=== PATIENT | male | born 1950 | race Caucasian/White ===

== ENCOUNTER 2020-04-29 08:40 | Day surgery (SDC) | payer MEDICARE ==
[~2020-04-29 08:40] MED LIST: Bupivacaine 0.5% 30 ML SDV ONE; Lidocaine 0.5% 50 ML SDV ONE; Midazolam 1 MG/ML 2 ML SDV ONE; Propofol 200 MG/20 ML SDV ONE; fentaNYL 100 MCG/2 ML SDV ONE
[2020-04-29] MEDS ORDERED: Nozin Nasal Sanitizer NASBOTH ONE (09:15)
[2020-04-29] MEDS ORDERED: Lactated Ringers 1,000 ML IV SCH (10:00)
[2020-04-29] MEDS ORDERED: ceFAZolin 1 GM in Premix Bag 1 BAG IV ONE (10:30)
[2020-04-29 13:11] VITALS: BP 131/80
[2020-04-29 13:42] VITALS: PULSE 60
--- NOTE | 2020-05-12 10:07 | OR ---
DATE OF PROCEDURE: 04/29/2020 SURGEON: Maxx Scott MD PREOPERATIVE DIAGNOSIS: Stenosing tenosynovitis, 3rd finger, left hand. POSTOPERATIVE DIAGNOSIS: Stenosing tenosynovitis, 3rd finger, left hand. Two small synovial cysts of the tendon sheath. PROCEDURE: Release of A1 felipe 3rd finger and excision of synovial cyst. ANESTHESIA: Local with sedation. INDICATIONS: Abdiel is a 69-year-old gentleman with a history of progressive pain in the left 3rd finger with locking in flexion. This happens multiple times throughout the day. He particularly notices it in the morning when he wakes up and takes him quite some time to work the finger into extension. He now presents for release of the A1 felipe. Risks, benefits, and potential complications were discussed. DESCRIPTION OF PROCEDURE: After adequate anesthesia was obtained with the local infiltration, the hand was prepped and draped in a sterile fashion. A transverse incision was made in the palmar crease overlying the flexor tendon. Dissection carried down through the subcutaneous tissues and care taken to avoid neurovascular structures. Flexor tendon was identified and a small teodoro was made in the A1 felipe with a 15 blade, which was then extended using tenotomy scissors proximally and distally. Once this was completed, a synovial cyst on the tendon sheath of the flexor was identified and this was excised. Finger was taken through range of motion. No other abnormalities of the tendons were noted and release of the felipe was confirmed proximally and distally by direct visualization and palpation. It was then irrigated and skin was closed with 3-0 nylon in interrupted mattress fashion. Sterile dressing was then applied. The patient tolerated the procedure well with no complications. He was taken from the operating room in stable condition. Maxx Scott MD /[id number]
== END 2020-04-29 13:45 | disposition home or self-care (01) ==
LOC: JP.SDS 08:40
PROVIDERS: ATTEND Specialist
DX: M65.332 Trigger finger, left middle finger (principal); M65.842 Other synovitis and tenosynovitis, left hand; M71.342 Other bursal cyst, left hand; J44.9 Chronic obstructive pulmonary disease, unspecified; F41.9 Anxiety disorder, unspecified; F32.9 Major depressive disorder, single episode, unspecified; E66.9 Obesity, unspecified; I11.0 Hypertensive heart disease with heart failure; I50.9 Heart failure, unspecified; G47.33 Obstructive sleep apnea (adult) (pediatric); Z88.5 Allergy status to narcotic agent; Z88.7 Allergy status to serum and vaccine; Z87.891 Personal history of nicotine dependence; Z79.899 Other long term (current) drug therapy; Z79.82 Long term (current) use of aspirin; Z68.32 Body mass index [BMI] 32.0-32.9, adult
CPT/HCPCS: 26055; A9270; J0690; J2001; J2250; J2704; J3010; J3490; J7120

== ENCOUNTER 2020-05-08 08:11 | Emergency (ER) | payer MEDICARE ==
[2020-05-08 08:22] VITALS: BP 139/86; PULSE 56
--- NOTE | 2020-05-08 08:37 | EDM.PDOC ---
ED HPI GENERAL MEDICAL PROBLEM - General Chief Complaint: Upper Extremity Injury/Pain Stated Complaint: POST SURGERY ISSUES Time Seen by Provider: 05/08/20 08:20 Source of Information: Reports: Patient History Limitations: Reports: No Limitations - History of Present Illness INITIAL COMMENTS - FREE TEXT/NARRATIVE: 69-year-old male worried about postoperative complications from trigger finger release surgery that he had just over 1 week ago. His middle and index finger are numb and stiff. He is worried about gangrene and losing his fingers. No fevers or chills, no redness, some home health nurse redressed his bandages and made no comment that things look bad. Onset: Other (Numbness since his surgery) Duration: Day(s): (8 to 9 days) Location: Reports: Upper Extremity, Left Associated Symptoms: Reports: No Other Symptoms - Related Data Allergies Allergy/AdvReac Type Severity Reaction Status Date / Time Influenza Virus Vaccines Allergy Difficulty Verified 05/08/20 08:19 Breathing meloxicam [From Mobic] Allergy Rash Verified 05/08/20 08:19 codeine AdvReac nausea/vomi Verified 05/08/20 08:19 ting hydrocodone AdvReac Nausea and Verified 05/08/20 08:19 Vomiting Home Meds: Home Meds Formoterol/Mometasone [Dulera 100 MCG/5 MCG] 2 puff INH BID 08/28/15 [History] Tiotropium [Spiriva HandiHaler] 1 cap INH DAILY 08/28/15 [History] Lisinopril 5 mg PO DAILY 12/24/15 [History] Metoprolol Tartrate [Lopressor] 50 mg PO DAILY 12/24/15 [History] Albuterol Sulfate [Proair Hfa] 1 - 2 puff INH Q4H PRN 03/08/16 [History] Aspirin 81 mg PO DAILY 03/08/16 [History] Furosemide [Lasix] 40 mg PO DAILY 05/27/16 [History] Acetaminophen [Tylenol] 650 mg PO Q4H PRN 03/19/20 [History] Alclometasone Dipropionate 1 applic TOP BID 03/19/20 [History] Folic Acid 1 mg PO DAILY 03/19/20 [History] Latanoprost/Pf [Latanoprost 0.005% Eye Drop] 1 drop EYEBOTH BEDTIME 03/19/20 [History] Pravastatin Sodium [Pravastatin (Pravachol)] 40 mg PO DAILY 03/19/20 [History] Past Medical History HEENT History: Reports: Allergic Rhinitis, Impaired Vision, Sinusitis Cardiovascular History: Reports: Heart Failure, Hypertension Other Cardiovascular History: ascending aorta enlargement Respiratory History: Reports: COPD, Sleep Apnea Gastrointestinal History: Reports: Colon Polyp Genitourinary History: Reports: Prostate Disorder Musculoskeletal History: Reports: Back Pain, Chronic, Osteoarthritis, Other (See Below) Other Musculoskeletal History: L middle trigger finger Neurological History: Reports: Migraines, Seizure Psychiatric History: Reports: Anxiety, Depression Endocrine/Metabolic History: Reports: Obesity/BMI 30+ Dermatologic History: Reports: Eczema - Infectious Disease History Infectious Disease History: Reports: Chicken Pox, Measles, Mumps, Pertussis (Whooping Cough) - Past Surgical History HEENT Surgical History: Reports: None Cardiovascular Surgical History: Reports: None Respiratory Surgical History: Reports: None GI Surgical History: Reports: Colonoscopy, Hernia Repair/Other Male Surgical History: Reports: None Neurological Surgical History: Reports: None Musculoskeletal Surgical History: Reports: Arthroscopic Knee, Knee Replacement Other Musculoskeletal Surgeries/Procedures:: left knee replacement in Jul 2019 Social & Family History - Family History Family Medical History: Noncontributory - Tobacco Use Smoking Status *Q: Never Smoker - Caffeine Use Caffeine Use: Reports: Coffee - Recreational Drug Use Recreational Drug Use: No - Living Situation & Occupation Living situation: Reports: Single Occupation: Retired Review of Systems - Review of Systems Review Of Systems: See Below Constitutional: Denies: Fever Respiratory: Denies: Shortness of Breath Cardiovascular: Denies: Chest Pain Neurological: Reports: Paresthesia (Numbness in the index and middle fingers on the left hand) ED EXAM, GENERAL - Physical Exam Exam: See Below Exam Limited By: No Limitations General Appearance: Alert, No Apparent Distress Respiratory/Chest: No Respiratory Distress Extremities: Other (Exam is otherwise limited to the left hand. He has a loose dressing around the palm of the hand with a bandage over the incision. All of his fingers are normal color, he has good capillary refill in all his fingers.) Course - Vital Signs Last Recorded V/S: Last Vital Signs Temp 97.8 F 05/08/20 08:22 Pulse 56 L 05/08/20 08:22 Resp 20 05/08/20 08:22 BP 139/86 05/08/20 08:22 Pulse Ox 97 05/08/20 08:22 - Re-Assessments/Exams Free Text/Narrative Re-Assessment/Exam: 05/08/20 08:35 Reassured the patient that gangrene is a lack of circulation, and his is normal. The numbness and stiffness are not unusual after his surgery and should improve over time, he has a recheck with Dr. Scott next week and should keep that appointment. Departure - Departure Time of Disposition: 08:48 Disposition: Home, Self-Care 01 Clinical Impression: Paresthesia of finger - Discharge Information Instructions: Paresthesia Referrals: PCP,None [Primary Care Provider] - Forms: ED Department Discharge Care Plan Goals: Continue your postoperative care as directed by Dr. Scott, and keep your recheck appointment next week as scheduled. Sepsis Event Note (ED) - Evaluation Sepsis Screening Result: No Definite Risk - Focused Exam Vital Signs: Vital Signs Temp Pulse Resp BP Pulse Ox 05/08/20 08:22 97.8 F 56 L 20 139/86 97
== END 2020-05-08 08:48 | disposition home or self-care (01) ==
LOC: JP.ED 08:11
DX: R20.2 Paresthesia of skin (principal); I11.0 Hypertensive heart disease with heart failure; I50.9 Heart failure, unspecified; J44.9 Chronic obstructive pulmonary disease, unspecified; E66.9 Obesity, unspecified; Z68.31 Body mass index [BMI] 31.0-31.9, adult; Z88.7 Allergy status to serum and vaccine; Z88.5 Allergy status to narcotic agent; Z88.8 Allergy status to other drugs, medicaments and biological substances; Z79.82 Long term (current) use of aspirin; Z79.899 Other long term (current) drug therapy
CPT/HCPCS: 99282; 99283

== ENCOUNTER 2020-12-21 05:49 | Day surgery (SDC) | payer MEDICARE ==
[2020-12-21] MEDS ORDERED: Lactated Ringers 1,000 ML IV SCH (06:30)
[2020-12-21] MEDS ORDERED: Nozin Nasal Sanitizer NASBOTH ONE (06:30)
[2020-12-21] MEDS ORDERED: ceFAZolin 1 GM in Premix Bag 1 BAG IV ONE (07:30)
[2020-12-21] MEDS ORDERED: Midazolam 1 MG/ML 2 ML SDV ONE (07:32)
[2020-12-21] MEDS ORDERED: fentaNYL 100 MCG/2 ML SDV ONE (07:32)
[2020-12-21] MEDS ORDERED: Propofol 200 MG/20 ML SDV ONE (07:32)
[2020-12-21] MEDS ORDERED: Lidocaine 0.5% 50 ML SDV ONE (07:35)
[2020-12-21] MEDS: Bupivacaine 0.5% 30 ML SDV ONE ×2 (08:07→08:28)
[2020-12-21 09:32] VITALS: BP 123/74
[2020-12-21] MEDS ORDERED: Acetaminophen/oxyCODONE 325-5 MG Tab PO ONE (09:36)
[2020-12-21 09:44] VITALS: PULSE 71
--- NOTE | 2020-12-30 16:22 | OR ---
DATE OF PROCEDURE: 12/21/2020 SURGEON: Maxx Scott MD PREOPERATIVE DIAGNOSIS: Carpal tunnel syndrome, left wrist, possible digital nerve injury. POSTOPERATIVE DIAGNOSIS: Carpal tunnel syndrome, left wrist. Intact digital nerve. PROCEDURE: Left carpal tunnel release and exploration of digital nerve to digits 2 and 3. FAMILY SERVICE CASEWORKER: FAUSTO Foley. ANESTHESIA: General. INDICATIONS: Abdiel is a 70-year-old gentleman who has persistent numbness in the 2nd and 3rd fingers of his left hand. He previously had a trigger finger release and subsequent to that developed increasing numbness. This is felt to be secondary to carpal tunnel syndrome. However, there is a chance of injury to the digital nerve from the trigger finger release including possible neuroma in situ. He now presents for release of the carpal tunnel having failed conservative treatment. Also, planned exploration of the digital nerve with neurolysis as needed. Risks, benefits, potential complications of the procedure were discussed. DESCRIPTION OF PROCEDURE: After adequate anesthesia was obtained, patient was placed supine with the left hand prepped and draped. A longitudinal incision was made in the palm distal to the wrist crease in line between the 3rd and 4th fingers. This was carried down through the subcutaneous tissues. The palmar fascia was divided and a retractor was placed. Transverse carpal ligament was then divided under direct visualization. Mild compression of the median nerve was noted. No abnormalities were noted within the tunnel. Release was completed proximally and distally under direct visualization and confirmed by palpation. The incision was carried slightly distally up into the branching of the median nerve into the digital nerves and no abnormalities are identified. The previous incision over the trigger release was utilized and extended in a zigzag configuration. Dissection carried down through the subcutaneous tissues. The flexor tendons were identified and the neurovascular structures were then identified leading into the ulnar aspect of the index finger and the radial aspect of the long finger, which were the areas of most intense paresthesias. No abnormalities were identified along the individual digital nerves at this region distal to the branching. Dissection was then carried more proximally to the portion where the nerve branched. This was well proximal to the A1 felipe and trigger release. No lesion was noted of the digital nerve at this location. There was some mild scarring present slightly more distal along the area of previous dissection. Wounds were irrigated. The skin was closed with 3-0 nylon in interrupted mattress fashion. Wounds were infiltrated with Marcaine 0.5% and sterile dressing was applied. The patient tolerated procedure well. There were no complications. Taken from the operating room in stable condition. Maxx Scott MD /[id number]
== END 2020-12-21 10:10 | disposition home or self-care (01) ==
LOC: JP.SDS 05:49
PROVIDERS: ATTEND Specialist
DX: G56.02 Carpal tunnel syndrome, left upper limb (principal); I11.0 Hypertensive heart disease with heart failure; I50.9 Heart failure, unspecified; J44.9 Chronic obstructive pulmonary disease, unspecified; G47.33 Obstructive sleep apnea (adult) (pediatric); E66.9 Obesity, unspecified; Z68.33 Body mass index [BMI] 33.0-33.9, adult; Z88.7 Allergy status to serum and vaccine; Z88.6 Allergy status to analgesic agent; Z88.8 Allergy status to other drugs, medicaments and biological substances; Z98.890 Other specified postprocedural states
CPT/HCPCS: 36415; 64721; 80053; 85027; A9270; J0690; J2250; J2704; J3010; J3490; J7120

== ENCOUNTER 2021-02-22 12:09 | Emergency (ER) | payer MEDICARE ==
[2021-02-22 12:37] VITALS: BP 136/86; PULSE 65
--- NOTE | 2021-02-22 12:53 | EDM.PDOC ---
ED HPI GENERAL MEDICAL PROBLEM - General Chief Complaint: Chest Pain Stated Complaint: HAD SHARP PAINS IN HEART AREA Time Seen by Provider: 02/22/21 12:50 Source of Information: Reports: Patient, Old Records, RN History Limitations: Reports: No Limitations - History of Present Illness INITIAL COMMENTS - FREE TEXT/NARRATIVE: 70 yo male presents after 2 spells of fairly brief, sharp substernal chest pain once yesterday and once today. There were no associated sx's. He denies any recent calf pain or LE edema and no orthopnea. He is not a smoker. No fever or cough. Sx's at rest. He walked 4 blocks to get here and had no recurrence of this pain. Onset: Sudden Onset Date: 02/21/21 Duration: Minutes:, Intermittent Location: Reports: Chest Quality: Reports: Sharp Severity: Moderate Improves with: Reports: Other (? time) Worsens with: Reports: Other (unknown) Context: Reports: Other (See HPI) Associated Symptoms: Reports: Chest Pain. Denies: Cough, Diaphoresis, Fever/Chills, Shortness of Breath Treatments TIRE MAINTENANCE TECHNICIAN: Reports: Other (see below) (none) - Related Data Allergies Allergy/AdvReac Type Severity Reaction Status Date / Time Influenza Virus Vaccines Allergy Difficulty Verified 02/22/21 12:45 Breathing meloxicam [From Mobic] Allergy Rash Verified 02/22/21 12:45 codeine AdvReac nausea/vomi Verified 02/22/21 12:45 ting hydrocodone AdvReac Nausea and Verified 02/22/21 12:45 Vomiting Home Meds: Home Meds Formoterol/Mometasone [Dulera 100 MCG/5 MCG] 2 puff INH BID 08/28/15 [History] Lisinopril 5 mg PO DAILY 12/24/15 [History] Metoprolol Tartrate [Lopressor] 50 mg PO DAILY 12/24/15 [History] Albuterol Sulfate [Proair Hfa] 1 - 2 puff INH Q4H PRN 03/08/16 [History] Aspirin 81 mg PO DAILY 03/08/16 [History] Furosemide [Lasix] 40 mg PO DAILY 05/27/16 [History] Acetaminophen [Tylenol] 650 mg PO Q4H PRN 03/19/20 [History] Alclometasone Dipropionate 1 applic TOP BID 03/19/20 [History] Folic Acid 1 mg PO DAILY 03/19/20 [History] Latanoprost/Pf [Latanoprost 0.005% Eye Drop] 1 drop EYEBOTH BEDTIME 03/19/20 [History] Pravastatin Sodium [Pravastatin (Pravachol)] 40 mg PO DAILY 03/19/20 [History] Ibuprofen [Motrin] 600 mg PO Q8H PRN #90 tab 06/11/20 [Rx] Cholecalciferol (Vitamin D3) [Vitamin D] 2,000 unit PO DAILY 11/16/20 [History] Past Medical History HEENT History: Reports: Allergic Rhinitis, Impaired Vision, Sinusitis Cardiovascular History: Reports: Heart Failure, Hypertension Other Cardiovascular History: ascending aorta enlargement Respiratory History: Reports: COPD, Sleep Apnea Gastrointestinal History: Reports: Colon Polyp Genitourinary History: Reports: Prostate Disorder Musculoskeletal History: Reports: Back Pain, Chronic, Osteoarthritis, Other (See Below) Other Musculoskeletal History: right hip pain Neurological History: Reports: Migraines, Seizure Psychiatric History: Reports: Anxiety, Depression Endocrine/Metabolic History: Reports: Obesity/BMI 30+ Dermatologic History: Reports: Eczema - Infectious Disease History Infectious Disease History: Reports: Chicken Pox, Measles, Mumps, Novel Coronavirus, Pertussis (Whooping Cough) - Past Surgical History Head Surgeries/Procedures: Reports: None HEENT Surgical History: Reports: None Cardiovascular Surgical History: Reports: None Respiratory Surgical History: Reports: None GI Surgical History: Reports: Colonoscopy, Hernia Repair/Other Male Surgical History: Reports: None Neurological Surgical History: Reports: None Musculoskeletal Surgical History: Reports: Arthroscopic Knee, Carpal Tunnel, Knee Replacement Other Musculoskeletal Surgeries/Procedures:: left knee replacement in Jul 2019. s/p L middle trigger finger 04/29/20. s/p L carpal tunnel release 12/21/20 Social & Family History - Family History Family Medical History: No Pertinent Family History - Caffeine Use Caffeine Use: Reports: Coffee - Living Situation & Occupation Living situation: Reports: Single Occupation: Retired ED ROS GENERAL - Review of Systems Review Of Systems: See Below Constitutional: Reports: No Symptoms HEENT: Reports: No Symptoms Respiratory: Denies: Shortness of Breath, Wheezing, Pleuritic Chest Pain, Cough, Sputum, Hemoptysis Cardiovascular: Reports: Chest Pain. Denies: Dyspnea on Exertion (not worse than usual), Edema, Lightheadedness, Orthopnea, Palpitations GI/Abdominal: Reports: No Symptoms : Reports: No Symptoms Musculoskeletal: Reports: No Symptoms Skin: Reports: No Symptoms Neurological: Reports: No Symptoms ED EXAM, GENERAL - Physical Exam Exam: See Below Exam Limited By: No Limitations General Appearance: Alert, WD/WN, No Apparent Distress Eye Exam: Bilateral Eye: Normal Inspection Ears: Normal External Exam, Normal Canal, Hearing Grossly Normal, Normal TMs Ear Exam: Bilateral Ear: Auricle Normal, Canal Normal, TM normal Nose: Normal Inspection, No Blood Throat/Mouth: Normal Inspection, Normal Lips, Normal Oropharynx, Normal Voice, No Airway Compromise Head: Atraumatic, Normocephalic Neck: Normal Inspection Respiratory/Chest: No Respiratory Distress, Lungs Clear, Normal Breath Sounds, No Accessory Muscle Use Cardiovascular: Regular Rate, Rhythm, No Edema GI/Abdominal: Normal Bowel Sounds, Soft, Non-Tender, No Distention Back Exam: Normal Inspection. No: CVA Tenderness (R), CVA Tenderness (L) Extremities: Normal Inspection, Normal Range of Motion, Non-Tender, No Pedal Edema Neurological: Alert, Oriented, CN II-XII Intact, Normal Cognition, No Motor/Sensory Deficits Psychiatric: Normal Affect, Normal Mood Skin Exam: Warm, Dry, Intact, Normal Color, No Rash #1 Interpretation EKG Date: 02/22/21 Time: 12:25 Rhythm: NSR Rate (Beats/Min): 57 [place]: Normal P-Wave: Present QRS: Normal ST-T: Normal QT: Normal Comparison: NA - No Prior EKG Course - Vital Signs Last Recorded V/S: Last Vital Signs Temp 36.6 C 02/22/21 12:56 Pulse 65 02/22/21 12:56 Resp 14 02/22/21 12:56 BP 136/86 02/22/21 12:56 Pulse Ox 94 L 02/22/21 12:56 - Orders/Labs/Meds Orders: Active Orders 24 hr Category Date Time Status Cardiac Monitoring [RC] .As Directed Care 02/22/21 12:10 Active EKG Documentation Completion [RC] ASDIRECTED Care 02/22/21 12:10 Active Acetaminophen [Tylenol Extra Strength] Med 02/22/21 14:00 Once 1,000 mg PO ONETIME ONE EKG 12 Lead [EK] Routine Ther 02/22/21 12:10 Ordered Medication Orders Acetaminophen (Acetaminophen 500 Mg Tab) 1,000 mg PO ONETIME ONE Stop: 02/22/21 14:01 Labs: Laboratory Tests 02/22/21 02/22/21 Range/Units 13:10 13:10 WBC 5.1 (4.5-11.0) K/uL RBC 5.30 (4.30-5.90) M/uL Hgb 16.0 H (12.0-15.0) g/dL Hct 47.6 (40.0-54.0) % MCV 90 (80-98) fL MCH 30 (27-31) pg MCHC 34 (32-36) % Plt Count 167 (150-400) K/uL Sodium 143 (140-148) mmol/L Potassium 4.2 (3.6-5.2) mmol/L Chloride 105 (100-108) mmol/L Carbon Dioxide 27 (21-32) mmol/L Anion Gap 11.4 (5.0-14.0) mmol/L BUN 18 (7-18) mg/dL Creatinine 1.2 (0.8-1.3) mg/dL Est Cr Clr Drug Dosing 59.99 mL/min Estimated GFR (MDRD) > 60 (>60) Glucose 93 (74-106) mg/dL Calcium 9.5 (8.5-10.1) mg/dL Troponin I < 0.017 (0.000-0.056) ng/mL Meds: Medications Generic Name Dose Route Start Last Admin Trade Name Freq PRN Reason Stop Dose Admin Acetaminophen 1,000 mg 02/22/21 14:00 Acetaminophen 500 Mg Tab PO 02/22/21 14:01 ONETIME ONE Departure - Departure Time of Disposition: 14:10 Disposition: Home, Self-Care 01 Condition: Good Clinical Impression: Nonspecific chest pain Instructions: Nonspecific Chest Pain, Adult, [id number] Referrals: Dorota Pacheco PA-C [Primary Care Provider] - Forms: ED Department Discharge Additional Instructions: Take acetaminophen up to 1000 mg every 6 hrs as needed for pain relief. F/U with your provider later this week. Sepsis Event Note (ED) - Focused Exam Vital Signs: Vital Signs Temp Pulse Resp BP Pulse Ox 02/22/21 12:56 36.6 C 65 14 136/86 94 L 02/22/21 12:20 36.6 C 65 14 136/86 94 L - My Orders Last 24 Hours: My Active Orders 02/22/21 12:10 Cardiac Monitoring [RC] .As Directed EKG Documentation Completion [RC] ASDIRECTED EKG 12 Lead [EK] Routine 02/22/21 14:00 Acetaminophen [Tylenol Extra Strength] 1,000 mg PO ONETIME ONE - Assessment/Plan Last 24 Hours: My Active Orders 02/22/21 12:10 Cardiac Monitoring [RC] .As Directed EKG Documentation Completion [RC] ASDIRECTED EKG 12 Lead [EK] Routine 02/22/21 14:00 Acetaminophen [Tylenol Extra Strength] 1,000 mg PO ONETIME ONE
[2021-02-22] MEDS: Acetaminophen 500 MG Tab PO ONE (14:18)
== END 2021-02-22 14:45 | disposition home or self-care (01) ==
LOC: JP.ED 12:09
DX: R07.2 Precordial pain (principal); I11.0 Hypertensive heart disease with heart failure; I50.9 Heart failure, unspecified; J44.9 Chronic obstructive pulmonary disease, unspecified; E66.9 Obesity, unspecified; Z88.7 Allergy status to serum and vaccine; Z88.5 Allergy status to narcotic agent; Z88.8 Allergy status to other drugs, medicaments and biological substances; Z79.82 Long term (current) use of aspirin; Z79.899 Other long term (current) drug therapy; Z68.32 Body mass index [BMI] 32.0-32.9, adult
CPT/HCPCS: 36415; 80048; 84484; 85027; 93005; 99285; A9270; 99284

== ENCOUNTER → 2021-05-20 | Day surgery (SDC) | payer MEDICARE ==
[~2021-05-20] MED LIST changes: -Bupivacaine 0.5% 30 ML SDV ONE; +Bupivacaine 0.5% 50 ML MDV ONE; -Lidocaine 0.5% 50 ML SDV ONE; +Lidocaine 1% with EPINEPHrine 1:100,000 50 ML MDV ONE; +ceFAZolin 2 GM in Sodium Chloride 0.9% 100 ML IV ONE
[2021-05-20] MEDS: Sodium Chloride 0.9% 1,000 ML IV SCH (10:35)
[2021-05-20 10:42] LABS: CORONAVIRUS COVID-19 NAA NEGATIVE (NEGATIVE)
[2021-05-20] MEDS: ceFAZolin 2 GM in Premix Bag 1 BAG IV ONE (11:10)
[2021-05-20] MEDS: Lidocaine 1% with EPINEPHrine 1:100,000 50 ML MDV INJECT ONE (11:32)
[2021-05-20] MEDS: Bupivacaine 0.5% 50 ML MDV INJECT ONE (11:32)
--- NOTE | 2021-05-20 13:18 | CRLCR ---
For Patients: As a result of the Cures Act, medical imaging exams and procedure reports are released immediately into your electronic medical record. You may view this report before your referring provider. If you have questions, please contact your health care provider. Indication: Post code blue Comparison: None available. Technique: PA and Lateral views chest Findings: There are overall increased interstitial markings seen throughout the bilateral hemithoraces likely representing pulmonary edema with minimal basilar airspace opacities which may represent atelectasis versus infiltrates. The cardiac silhouette is moderately enlarged with a tortuous thoracic aorta. The bony thorax is grossly intact. Impression: Overall increased interstitial markings seen throughout the bilateral hemithoraces likely representing pulmonary edema with basilar atelectasis versus infiltrates. Dictated by Davy Novak MD @ 05/20/2021 1:17:[address] Davy Novak @ May 20 2021 1:17PM
[2021-05-20 13:36] VITALS: BP 156/91; PULSE 66
--- NOTE | 2021-05-21 16:44 | PCM.EKG ---
#1 Interpretation EKG Date: 05/20/21 Time: 11:48 Rhythm: NSR Rate (Beats/Min): 65 [place]: Normal P-Wave: Present QRS: Normal ST-T: Other (Inverted T waves in leads V2 through V6) QT: Normal GA/PQ Interval: Normal Comparison: NA - No Prior EKG
--- NOTE | 2021-06-17 14:05 | OR ---
DATE OF PROCEDURE: 06/17/2021 SURGEON: Scott Gr MD PROCEDURE: Excision of cyst, back. RISKS: Risks, benefits, alternatives, and limitations including, but not limited to infection, bleeding, cardiovascular issues, wound problems, chronic wounds, chronic pain were all explained to the patient and he wished to proceed. PROCEDURE IN DETAIL: The patient was placed in prone position. A transverse incision was made. This was made approximately 3.5 cm in size. This was carried down to the level and the area of concern. Using electrocautery, the lipoma was identified and subsequently excised without difficulty. The wound was closed with 3-0 Vicryl and 4-0 Prolene in interrupted running fashion. During the aspect of this procedure, the patient developed ventricular tachycardia, which required a code to be called. The patient was subsequently intubated and then subsequently extubated. He was transferred for observation purposes to [facility]. Scott Gr MD /[id number]
--- NOTE | 2021-06-17 14:11 | DISCH ---
DISCHARGE DIAGNOSIS: Status post excision of lipoma. SUMMARY OF HOSPITAL COURSE: Pleasant gentleman, underwent a lipoma excision, and developed a ventricular tachycardia. The patient had been cleared by Cardiology preoperatively, but nonetheless developed this symptom. He underwent a code and subsequently recovered. He was then transferred to [facility] for further evaluation and management. Prior to discharge, he was extubated, breathing, had normal vital signs and had no difficulty breathing. /[id number]
== END ==
LOC: JP.SDS 09:40
PROVIDERS: ATTEND Surgery
DX: D17.1 Benign lipomatous neoplasm of skin and subcutaneous tissue of trunk (principal); I47.2 Ventricular tachycardia; I11.0 Hypertensive heart disease with heart failure; I50.9 Heart failure, unspecified; J44.9 Chronic obstructive pulmonary disease, unspecified; G47.33 Obstructive sleep apnea (adult) (pediatric); Z88.6 Allergy status to analgesic agent; Z88.8 Allergy status to other drugs, medicaments and biological substances; Z88.7 Allergy status to serum and vaccine; Z01.812 Encounter for preprocedural laboratory examination; Z20.822 Contact with and (suspected) exposure to COVID-19
CPT/HCPCS: 0241U; 11404; 36415; 36600; 71046; 80053; 82803; 83735; 84484; 85025; 88304; 93005; J0690; J2250; J2704; J3010; J3490; J7030

== ENCOUNTER 2022-01-21 14:49 | Emergency (ER) | payer MEDICARE ==
[2022-01-21] MEDS ORDERED: Sodium Chloride 0.9% 1,000 ML IV SCH (15:15)
[2022-01-21 16:22] VITALS: BP 150/85; PULSE 95
== END 2022-01-21 16:28 | disposition home or self-care (01) ==
LOC: JP.ED 14:49
DX: K52.9 Noninfective gastroenteritis and colitis, unspecified (principal); I11.0 Hypertensive heart disease with heart failure; I50.9 Heart failure, unspecified; F41.9 Anxiety disorder, unspecified; F32.A Depression, unspecified; J44.9 Chronic obstructive pulmonary disease, unspecified; M19.90 Unspecified osteoarthritis, unspecified site; E66.9 Obesity, unspecified; Z68.32 Body mass index [BMI] 32.0-32.9, adult; Z79.899 Other long term (current) drug therapy; Z79.82 Long term (current) use of aspirin; Z88.5 Allergy status to narcotic agent; Z88.7 Allergy status to serum and vaccine; Z88.8 Allergy status to other drugs, medicaments and biological substances
CPT/HCPCS: 36415; 80048; 83690; 85025; 99282; 99284; J7030

== ENCOUNTER 2023-06-05 18:15 | Emergency (ER) | payer MEDICARE ==
[2023-06-05 19:03] VITALS: BP 120/65; PULSE 95
[2023-06-05] MEDS ORDERED: Ketorolac 30 MG/ML SDV IM ONE (19:29)
== END 2023-06-05 19:51 | disposition home or self-care (01) ==
LOC: JP.ED 18:15
DX: K08.89 Other specified disorders of teeth and supporting structures (principal); J44.9 Chronic obstructive pulmonary disease, unspecified; I25.10 Atherosclerotic heart disease of native coronary artery without angina pectoris; I11.0 Hypertensive heart disease with heart failure; I50.9 Heart failure, unspecified; I25.2 Old myocardial infarction; E78.00 Pure hypercholesterolemia, unspecified; E66.9 Obesity, unspecified; M19.90 Unspecified osteoarthritis, unspecified site; Z79.82 Long term (current) use of aspirin; Z79.899 Other long term (current) drug therapy; Z88.5 Allergy status to narcotic agent; Z88.6 Allergy status to analgesic agent; Z88.8 Allergy status to other drugs, medicaments and biological substances; Z88.7 Allergy status to serum and vaccine
CPT/HCPCS: 96372; 99282; J1885; 99283

== ENCOUNTER 2023-10-28 02:52 | Emergency (ER) | payer MEDICARE ==
[2023-10-28 03:00] VITALS: BP 162/85; PULSE 78
== END 2023-10-28 08:00 | disposition home or self-care (01) ==
LOC: JP.ED 02:52
DX: R04.0 Epistaxis (principal); I25.10 Atherosclerotic heart disease of native coronary artery without angina pectoris; I11.0 Hypertensive heart disease with heart failure; I50.9 Heart failure, unspecified; J44.9 Chronic obstructive pulmonary disease, unspecified; K21.9 Gastro-esophageal reflux disease without esophagitis; M19.90 Unspecified osteoarthritis, unspecified site; E66.9 Obesity, unspecified; Z86.16 Personal history of COVID-19; Z68.33 Body mass index [BMI] 33.0-33.9, adult
CPT/HCPCS: 36415; 85018; 99284